=== PATIENT | female | born 1960 | race Hispanic/Latino ===

== ENCOUNTER 2016-03-05 12:10 | Outpatient (CLI) | payer MEDICARE ==
[2016-03-05] MEDS ORDERED: NACL ONE (14:41)
--- NOTE | 2016-03-05 16:02 | Cat Scan Report ---
CT of the chest with IV contrast. History: Left breast cancer. Comparison is made to previous study on July 05, 2013. The mediastinal and hilar regions are normal. The lungs are clear. No pulmonary masses or nodules are seen. There is no pleural fluid. Postoperative changes in the left breast are noted. No suspicious bony findings are seen. Impression: No evidence of metastatic disease or other significant findings.
--- NOTE | 2016-03-05 16:34 | Cat Scan Report ---
CT OF THE ABDOMEN AND PELVIS WITH IV AND ORAL CONTRAST: HISTORY: Breast cancer and renal cancer. FINDINGS: Comparison is made to the previous study on July 05, 2013. The liver and spleen are normal in size and configuration with no focal masses. The pancreas is normal. The gallbladder has been removed. The left kidney has been removed. There is no evidence of recurrent mass in the left renal fossa. The adrenal glands are normal. The right kidney is normal in size and configuration with no evidence of mass or hydronephrosis. There are no pelvic masses or abnormal fluid collections. No mesenteric inflammation is seen. There is no evidence of appendicitis. There are no suspicious bony findings. IMPRESSION: Status post left nephrectomy with no evidence of recurrent or metastatic disease.
== END 2016-03-05 12:11 | disposition home or self-care (01) ==
LOC: CT 12:10
PROVIDERS: ATTEND Internal Medicine Hematology
DX: C50.412 Malignant neoplasm of upper-outer quadrant of left female breast (principal); Z85.528 Personal history of other malignant neoplasm of kidney; Z85.41 Personal history of malignant neoplasm of cervix uteri; Z90.49 Acquired absence of other specified parts of digestive tract; Z90.5 Acquired absence of kidney
CPT/HCPCS: 36415; 71260; 74177; 82565; 84520; Q9967